=== PATIENT | female | born 1960 | race Caucasian/White ===

== ENCOUNTER 2024-08-19 06:05 | Day surgery (SDC) | payer BC ==
[2024-08-13 16:01] VITALS: BMI 24.4
[2024-08-19 06:46] VITALS: RESP 16
[2024-08-19] MEDS ORDERED: MIDAZOLAM HCL 2 MG/2 ML SINGLE DOSE VIAL ONE (07:38)
[2024-08-19] MEDS ORDERED: PROPOFOL 20 ML ONE (07:38)
[2024-08-19] MEDS ORDERED: oxyCODONE HCL 5 MG TABLET PO PRN ×3 (07:54→10:43)
[2024-08-19] MEDS ORDERED: ONDANSETRON 4 MG/2 ML VIAL IVPUSH PRN (07:54)
[2024-08-19] MEDS ORDERED: GENTAMICIN SO4 80 MG/2 ML VIAL ONE (07:58)
[2024-08-19] MEDS ORDERED: ceFAZolin SODIUM 1 GM VIAL ONE ×2 (07:58→08:25)
[2024-08-19] MEDS ORDERED: POLYMYXIN B SULFATE 500,000 UNIT VIAL ONE (07:58)
[2024-08-19] MEDS ORDERED: LACTATED RINGERS SOLUTION 1,000 ML IV SCH ×2 (08:00→10:45)
[2024-08-19] MEDS ORDERED: FAMOTIDINE 20 MG/50 ML IVPB 20 MG/50 ML MG IVPB ONE ×2 (08:15→11:02)
[2024-08-19] MEDS ORDERED: DEXAMETHASONE SOD PHOSPHATE 4 MG/1 ML VIAL ONE (08:30)
[2024-08-19] MEDS ORDERED: ONDANSETRON 4 MG/2 ML VIAL ONE ×2 (08:30→10:31)
[2024-08-19] MEDS ORDERED: ACETAMINOPHEN INJECTION 100 ML ONE (08:57)
[2024-08-19] MEDS ORDERED: ONDANSETRON 4 MG/2 ML VIAL IVPB PRN (10:43)
[2024-08-19] MEDS: FAMOTIDINE 20 MG PREMIXED IVPB IVPB ONE (11:00)
[2024-08-19 11:42] VITALS: TEMP 97.8
[2024-08-19] MEDS ORDERED: oxyCODONE HCL 5 MG TABLET ONE (12:06)
[2024-08-19] MEDS: oxyCODONE HCL 5 MG TABLET PO ONE (12:10)
[2024-08-19 12:13] VITALS: PULSE 76
[2024-08-19 13:06] VITALS: BP 122/70
== END 2024-08-19 13:26 | disposition home or self-care (01) ==
LOC: FASU 06:05
PROVIDERS: ATTEND Plastic Surgery
PROC: 0HPT0JZ Removal of Synthetic Substitute from Right Breast, Open Approach (ICD-10-PCS; principal; 2024-08-19 08:42)
PROC: 0HRT0JZ Replacement of Right Breast with Synthetic Substitute, Open Approach (ICD-10-PCS; 2024-08-19 08:42)
PROC: 0HQU0ZZ Repair Left Breast, Open Approach (ICD-10-PCS; 2024-08-19 08:42)
DX: C50.111 Malignant neoplasm of central portion of right female breast (principal); N65.1 Disproportion of reconstructed breast; T85.44XA Capsular contracture of breast implant, initial encounter; Y82.8 Other medical devices associated with adverse incidents; Y92.9 Unspecified place or not applicable; Y83.8 Other surgical procedures as the cause of abnormal reaction of the patient, or of later complication, without mention of misadventure at the time of the procedure
CPT/HCPCS: 19316; 19342; 19371; L8600; 88300-TC; 88304-TC; 94760; C1789; J0131